=== PATIENT | male | born 1955 | race Caucasian/White ===

== ENCOUNTER 2018-03-18 07:57 | Emergency (ER) | payer BC ==
--- NOTE | 2018-03-18 08:44 | UC ---
Skin Complaint HPI - HPI Summary HPI Summary: The patient is a 62-year-old male with right thumb pain and swelling 2-3 days. He states things started off feeling like a hangnail. He denies any fever. He is right handed. His never had any problems with a MRSA infection. - History of Current Complaint Chief Complaint: UCSkin Time Seen by Provider: 03/18/18 08:25 Stated Complaint: RED SWOLLEN FINGER TIP Onset/Duration: Gradual Onset, Lasting Days Skin Exposure Onset/Duration: Days Ago Timing: Constant Onset Severity: Mild Current Severity: Moderate Pain Intensity: 5 Pain Scale Used: 0-10 Numeric Location: Discrete Character: Swelling, Redness, Raised, Painful Aggravating Factor(s): Touch Alleviating Factor(s): Other - elevation Associated Signs & Symptoms: Positive: Tenderness - Allergy/Home Medications Allergies/Adverse Reactions: Allergies Allergy/AdvReac Type Severity Reaction Status Date / Time latex Allergy Rash Verified 03/18/18 08:15 Home Medications: Home Medications Ibuprofen [Advil] 2 tab PO ONCE PRN 03/18/18 [History Confirmed 03/18/18] Testosterone [Axiron] 1 unit IM DAILY 03/18/18 [History Confirmed 03/18/18] Review of Systems Constitutional: Negative Skin: Negative Eyes: Negative ENT: Negative Respiratory: Negative Cardiovascular: Negative Gastrointestinal: Negative Genitourinary: Negative Motor: Negative Neurovascular: Negative Musculoskeletal: Negative Neurological: Negative Psychological: Negative All Other Systems Reviewed And Are Negative: Yes PMH/Surg Hx/FS Hx/Imm Hx Previously Healthy: Yes - Surgical History Surgical History: None - Family History Known Family History: Positive: Hypertension - Social History Alcohol Use: None Substance Use Type: None Smoking Status (MU): Never Smoked Tobacco Physical Exam Triage Information Reviewed: Yes Appearance: Well-Appearing, No Pain Distress, Well-Nourished Vital Signs: Initial Vital Signs Temp 97.6 F 03/18/18 08:09 Pulse 57 03/18/18 08:09 Resp 18 03/18/18 08:09 BP 145/88 03/18/18 08:09 Pulse Ox 98 03/18/18 08:09 Eyes: Positive: Conjunctiva Clear ENT: Positive: Hearing grossly normal. Negative: Nasal congestion, Nasal drainage, Muffled voice, Hoarse voice Neck: Positive: Supple, Nontender Respiratory: Positive: Lungs clear, Normal breath sounds, No respiratory distress Cardiovascular: Positive: RRR, No Murmur Musculoskeletal: Positive: Other: - see image Neurological: Positive: Alert Psychological Exam: Normal Skin Exam: Other - see image Course/Dx - Diagnoses Provider Diagnoses: right thumb paronychia Procedures - Procedure Summary Procedure Summary: INCISIONS AND DRAINAGE OF RIGHT THUMB PARONYCHIA procedure explained questions answered TIME OUT sterile prep paronychia incised and drained culture obtained bandaid applied Discharge - Sign-Out/Discharge Documenting (check all that apply): Patient Departure All imaging exams completed and their final reports reviewed: No Studies - Discharge Plan Condition: Stable Disposition: HOME Prescriptions: Cephalexin CAP* [Keflex CAP*] 500 mg PO QID #20 cap Patient Education Materials: Paronychia (ED) Referrals: No Primary Care Phys,NOPCP [Primary Care Provider] - Additional Instructions: warm soapy soaks recheck in 48 hours if not markedly improved a culture is pending - Billing Disposition and Condition Condition: STABLE Disposition: Home Images Hands: 1 - red/swollen nail margin with pus note. no subungual pus
--- NOTE | 2018-03-20 18:55 | UC ---
- Progress Note Progress Note: wound + staph, + eikenella Please confirm pt improving onKeflex - culture hernandez sensitive if not improving - will send different abx Ginger 03/20/2018 Discharge - Sign-Out/Discharge Documenting (check all that apply): Post-Discharge Follow Up All imaging exams completed and their final reports reviewed: No Studies - Discharge Plan Condition: Stable Disposition: HOME Prescriptions: Cephalexin CAP* [Keflex CAP*] 500 mg PO QID #20 cap Patient Education Materials: Paronychia (ED) Referrals: No Primary Care Phys,NOPCP [Primary Care Provider] - Additional Instructions: warm soapy soaks recheck in 48 hours if not markedly improved a culture is pending - Billing Disposition and Condition Condition: STABLE Disposition: Home
== END 2018-03-18 08:58 | disposition home or self-care (01) ==
LOC: UCEAST 07:57
DX: L03.011 Cellulitis of right finger (principal); B95.61 Methicillin susceptible Staphylococcus aureus infection as the cause of diseases classified elsewhere; B96.89 Other specified bacterial agents as the cause of diseases classified elsewhere; Z91.040 Latex allergy status
CPT/HCPCS: 10060; 87070; 87077; 87186; 87205; 87640; 87641; 99202; G0463